=== PATIENT | female | born 1940 | race Caucasian/White ===

== ENCOUNTER → 2016-12-19 | Outpatient (CLI) | payer OTHER, BC ==
[~2016-12-19] MED LIST: ALEN70TA4 PO; AMLO-110 PO; ATEN50TA PO; BUPRTAB51 PO; CALC-338 PO; CLB/200 PO; FEXO1TAB46 PO; FURO-85 PO; HYDR-3419 PO; IBAN150T PO; LISI40TA PO; METH-446 PO; OMEP20CA9 PO; SUMA50TA15 PO; TOLT4CAP PO; ULT/50 PO
--- NOTE | 2016-12-19 15:37 | MAMMOGRAPHY REPORT ---
BILATERAL DIGITAL SCREENING MAMMOGRAM WITH CAD: 12/19/2016 CLINICAL HISTORY: Routine screening. Patient has no complaints. TECHNIQUE: Current study was also evaluated with a Computer Aided Detection (CAD) system. Bilateral CC and MLO views were obtained. COMPARISON: Comparison is made to exams dated: 12/19/2015 mammogram, 12/14/2014 mammogram, 12/13/2013 m ammogram, 12/10/2012 mammogram, and 05/27/2011 mammogram - [facility]. BREAST COMPOSITION: There are scattered areas of fibroglandular density in both breasts. FINDINGS: No suspicious masses, calcifications, or areas of architectural distortion are noted in ei ther breast. There has been no significant interval change compared to prior exams. Bilateral asymme tries are stable, including asymmetry in the right medial posterior breast which is stable dating antoinette k to the 2009 exam. IMPRESSION: ACR BI-RADS CATEGORY 2: BENIGN There is no mammographic evidence of malignancy. A 1 year screening mammogram is recommended. The pa tient will receive written notification of the results. Approximately 10% of breast cancers are not detected with mammography. A negative mammographic report should not delay biopsy if a clinically suggestive mass is present. Vianey Doyle M.D. /:12/19/2016 15:19:04 [employer]: Enedina SOLO(Davis)(M), [facility] letter sent: Normal 1/2 BI-RADS Code: ACR BI-RADS Category 2: Benign
== END | disposition home or self-care (01) ==
LOC: C.MAMM 12:34
PROVIDERS: ATTEND Family Medicine
DX: Z12.31 Encounter for screening mammogram for malignant neoplasm of breast (principal)